=== PATIENT | female | born 1980 | race Caucasian/White ===

== ENCOUNTER 2017-05-06 18:09 | Emergency (ER) | payer SELFPAY ==
[~2017-05-06] VITALS: Ht 185.4 cm; Wt 59.6 kg
[~2017-05-06 18:09] MED LIST: CYCL-36 PO; IBUP800T23 PO; ULTR50TA PO
[2017-05-06 18:17] VITALS: BP 130/87; PULSE 88; RESP 16; TEMP 99.2; O2SAT 99
[2017-05-06] MEDS ORDERED: predniSONE 20 MG TAB PO ONE (18:45)
[2017-05-06] MEDS ORDERED: KETOROLAC TROMETHAMINE 60 MG/2 ML (IM) VIAL IM ONE (18:45)
--- NOTE | 2017-05-06 18:46 | PD ---
HPI Chief Complaint: ENT Complaint Time Seen by Provider: 18:31 Travel History International Travel<30 days: No Contact w/Intl Traveler<30days: No Traveled to known affect area: No History of Present Illness HPI 36-year-old female complaining of bilateral ear and head pressure since yesterday morning. She states that she has been sick with a nonproductive cough and sore throat for 1 week and has tried Mucinex and NyQuil without relief. She says the ear pain is intermittent, positional, and moderate. States that she has never had this happen before. She denies fever, chills, dizziness, blurred vision, chest pain, shortness of breath, back pain, abdominal pain, dysuria, or leg pain. PFSH Past Medical History Depression: Yes Diminished Hearing: No Genitourinary: Yes (UTI) Musculoskeletal: Yes (RIGHT KNEE WITH CYST AND FLUID) ?: Not LMP: 04/12/17 Menopausal: No Past Surgical History Section: Yes (X 1 2003) Cholecystectomy: Yes Social History Alcohol Use: Yes (SOCIALLY) Tobacco Use: No Substance Use: No Allergies-Medications (Allergen,Severity, Reaction): Coded Allergies: No Known Allergies (Verified , 05/06/17) Reported Meds & Prescriptions Reported Meds & Active Scripts Active Medrol Dosepak (Methylprednisolone) 4 Mg Dspk 4 Mg PO DIRECTED Per Pharmacist direction Bactrim DS (Sulfamethoxazole-Trimethoprim) 800-160 Mg Tab 1 Tab PO BID Review of Systems Except as stated in HPI: all other systems reviewed are Neg Physical Exam Narrative GENERAL: Well-developed well-nourished in mild distress, tearful, anxious SKIN: Focused skin assessment warm/dry. HEAD: Atraumatic. Normocephalic. EYES: Pupils equal and round. No scleral icterus. No injection or drainage. ENT: No nasal bleeding. Mucous membranes pink and moist. Scant clear nasal discharge THROAT: Mild pharyngeal injection. no exudates, or tonsillar hypertrophy. Airway is patent. NECK: Trachea midline. No JVD. No tenderness to palpation, no lymphadenopathy CARDIOVASCULAR: Regular rate and rhythm. No murmur appreciated. RESPIRATORY: No accessory muscle use. Clear to auscultation. Breath sounds equal bilaterally. GASTROINTESTINAL: Abdomen soft, non-tender, nondistended. MUSCULOSKELETAL: No obvious deformities. No clubbing. No cyanosis. No edema. No CVA tenderness NEUROLOGICAL: Awake and alert. No obvious cranial nerve deficits. Motor grossly within normal limits. Normal speech. PSYCHIATRIC: Appropriate mood and affect; insight and judgment normal. Data Data Last Documented VS Vital Signs Date Time Temp Pulse Resp B/P (MAP) Pulse Ox O2 Delivery O2 Flow Rate FiO2 05/06/17 18:17 99.2 88 16 130/87 (101) 99 Orders Orders Prednisone (Deltasone) (05/06/17 18:45) Ketorolac Inj (Toradol Inj) (05/06/17 18:45) Ed Discharge Order (05/06/17 18:53) [facility] Medical Decision Making Medical Screen Exam Complete: Yes Emergency Medical Condition: Yes Differential Diagnosis Acute sinusitis versus acute pharyngitis versus syndrome versus occipital neuralgia Narrative Course 36-year-old female presents to emergency department for bilateral ear pain and headache for one day. She admits to having a nonproductive cough with sore throat for a week prior without relief with OTCs. Physical exam revealed a non-toxic, healthy appearing female in mild distress. Mild TTP of frontal and maxillary sinuses. Patient has had these symptoms for roughly 1 week however, patient presents with severe positional pain and I believe she would benefit from antibiotic therapy in combination with steroids. Antibiotics and steroids for sinuses. Advised patient to follow up with PCP for further treatment and evaluation Diagnosis Primary Impression: Acute sinusitis Qualified Codes: J01.10 - Acute frontal sinusitis, unspecified Referrals: Primary Care Physician Additional Instructions: Follow-up through primary care physician within 2 days All antibiotics as prescribed [id number] antihistamine such as Zyrtec per package instructions Scripts Methylprednisolone Dosepak (Medrol Dosepak) 4 Mg Dspk 4 MG PO DIRECTED, #1 DSPK 0 Refills Per Pharmacist direction Prov: Vj Anders MD 05/06/17 Sulfamethoxazole-Trimethoprim (Bactrim DS) 800-160 Mg Tab 1 TAB PO BID for Infection, #20 TAB 0 Refills Prov: Vj Anders MD 05/06/17 Disposition: 01 DISCHARGE HOME Condition: Stable Saida Tran May 06, 2017 18:46
[2017-05-06] MEDS ORDERED: BACT800T5 PO (18:47)
[2017-05-06] MEDS ORDERED: MEDR4PAK PO (18:47)
== END 2017-05-06 19:09 | disposition home or self-care (01) ==
LOC: PHEFT 18:09
DX: J01.10 Acute frontal sinusitis, unspecified (principal)
CPT/HCPCS: 96372; 99284; J1885; J7512